=== PATIENT | male | born 1950 | race Caucasian/White ===

== ENCOUNTER 2017-07-31 17:46 | Inpatient (IN) | payer OTHER, MEDICARE, SELFPAY ==
[2017-07-31 17:47] VITALS: BP 112/80; PULSE 84; RESP 17; TEMP 37.7; O2SAT 94; BMI 31.8
--- NOTE | 2017-07-31 18:38 | CT_ITS ---
STUDY: CT ABDOMEN AND PELVIS WITHOUT CONTRAST REASON FOR EXAM: Male, 66 years old. Right flank pain RADIATION DOSAGE (If Supplied By Facility): CTDIvol = ( 20.05 ) mGy, DLP = ( 1051.81 ) mGycm TECHNIQUE: Transaxial images were obtained from the dome of the diaphragm to the symphysis pubis without oral contrast, and without intravenous contrast. Sagittal and coronal images were reconstructed. Individualized dose optimization techniques were used for this CT. COMPARISON: None. FINDINGS: There is minimal atelectasis in the right lung base. There is no pleural effusion. The heart is normal in size. Coronary artery calcifications are present. There is a prosthesis in the mitral valve. Sternotomy wires are present. Normal liver. There are small calcifications in the lumen of the gallbladder. Normal spleen. Normal pancreas. Normal bilateral adrenal glands. There is a hyperechoic area in the lower pole and adjacent to the lower pole of the right kidney measuring 3 cm in length. There is stranding around the right kidney. There is mild dilatation of the collecting system in the right kidney. There are vascular calcifications in the midpole. A ureteral stent is present with the upper aspect in the right renal pelvis and the lower aspect in the bladder. No calcifications are seen adjacent to the stent. There is a punctate nonobstructing stone in the midpole of the left kidney. There are vascular calcifications in the mid pole of the left kidney. There is no dilatation of the collecting system in the left kidney. Normal visualized stomach. Normal small intestine. There are diverticula in the distal colon without adjacent stranding. The appendix measures about 8 mm, however the tip measures about 1.3 cm. There are marked vascular calcifications. Normal inferior vena cava. There is stranding around the right ureter. There is a small focus of air in the bladder, likely from recent catheterization. Normal visualized prostate gland. There is a small umbilical hernia containing fat. There are moderate degenerative changes in the visualized spine. CT/Abdomen/Pelvis without Cont IMPRESSION: There is a ureteral stent on the right side with the upper aspect in the right renal pelvis and the lower aspect in the bladder. There is no evidence of a stone adjacent to the stent. There is mild hydronephrosis in the right kidney. No stones are seen in the collecting system of the right kidney. There is stranding around the right kidney and right ureter, and a high density focus in the lower pole of the right kidney suggests either recent lithotripsy or percutaneous catheter placement. The tip of the appendix is prominent, however this is a nonspecific appearance. This may be secondary to irritation by the stranding around the right kidney extending into the right retroperitoneal space. Tip appendicitis cannot be completely excluded. There is diverticulosis of the distal colon. There is no ascites or free air. There are gallstones in the lumen of the gallbladder without evidence of surrounding inflammation. Electronically Signed: Tequila Liu MD at 20:46 EST Tel Direct: [phone], Service support ,
[2017-07-31] MEDS: 0.9% Normal Saline 1,000 ML 999 ML IV (19:07)
[2017-07-31] MEDS: Ondansetron 4 MG/2 ML Vial IV (19:07)
[2017-07-31 19:08] LABS: Absolute Lymphocyte Count 0.74 X10^3/ul (0.83-4.51); Absolute Neutrophil Count 10.5 X10^3/uL (2.0-7.7); Basophil# 0.02 X10^3/uL; Basophil% 0.2 % (0-1); Eosinophil# 0.13 X10^3/uL; Hematocrit 41.1 % (40-54); Lymphocyte # 0.74 X10^3/ul (4.0); Lymphocyte % 5.8 % (19-41); Mean Corp Hgb Conc 34.1 g/gl (32-36); Mean Corpuscular Hgb 30.7 pg (27.0-32.0); Mean Corpuscular Volume 90.1 fL (80-94); Mean Platelet Vol. 9.3 fl (6.2-12.0); Monocyte# 1.26 X10^3/uL; Monocyte% 9.9 % (0-10); Neutrophil # 10.52 X10^3/uL (2.7-7.7); Neutrophil % 82.9 % (47-70); Platelet Count 253 K/mm3 (150-450); RBC Distribution Width SD 42.5 fl (35.1-43.9); Red Blood Count 4.56 M/mm3 (4.6-6.2); White Blood Count 12.7 K/mm3 (4.4-11.0)
[2017-07-31 19:09] LABS: POSITIVE COUNT NO; POSITIVE DIFFERENTIAL NO; POSITIVE MORPHOLOGY NO
[2017-07-31 19:16] LABS: International Normalized Ratio 1.1; Prothrombin Time (Protime)PT. 13.7 SECONDS (11.7-14.9)
[2017-07-31 19:22] LABS: Anion Gap 9 (5-15); BUN 18 mg/dL (7-18); BUN/Creat Ratio 10.2 RATIO (10-20); Calcium,Total 8.8 mg/dL (8.5-10.1); Chloride 102 mmol/L (98-107); Creatinine, Serum 1.77 mg/dL (0.70-1.30); EST Glomerular Filtration Rate 41 mL/min (>60); Est Glom Filt Rate - Afr Amer 50 mL/min (>60); Estimated Creatinine Clearance 42.39 ml/min; Glucose 140 mg/dL (70-110); Potassium 4.5 mmol/L (3.5-5.1); Sodium Level 133 mmol/L (136-145)
[2017-07-31 19:40] LABS: Bacteria 0 SEEN /hpf (None Seen); Mucous, Urine 0 SEEN /hpf (<or=2+); Squamous Epithelial Cells - UA 0 SEEN /hpf (0-5)
[2017-07-31 19:50] LABS: Color, Urine Amber (Yellow); Glucose, Dipstick Normal (Normal); Ketone-Dipstick 15 mg/dl (Negative); Leukocyte Esterase-Dipstick 500 /ul (Negative); Nitrite-Dipstick Negative (Negative); Occult Blood-Urine 250 /ul (Negative); Protein-Dipstick 30 mg/dl (Negative); Urine Bilirubin Dipstick Negative (Negative); Urine Clarity Cloudy (Clear); Urine Urobilinogen Normal (Normal)
--- NOTE | 2017-07-31 20:01 | ED.RN ---
STILL NEEDS VERIFIED NO POA OR LW
[2017-07-31 20:05] LABS: Red Blood Cells-Urine > 100 SEEN /hpf (0-5); White Blood Cells 25-50 SEEN /hpf (0-5)
[2017-07-31 20:49] VITALS: BP 159/67; PULSE 64; RESP 18; O2SAT 97
--- NOTE | 2017-07-31 21:17 | ED.RN ---
PAGED DR. LAND UROLIGIST
--- NOTE | 2017-07-31 22:09 | ED.RN ---
PAGED DR. VELASQUEZ
[2017-07-31 22:12] VITALS: BP 133/64; PULSE 70; RESP 16; O2SAT 93
--- NOTE | 2017-07-31 22:18 | ED.VISSUMM ---
- ER Visit Summary Date of Service: 07/31/17 Chief Complaint: Right flank pain History of Present Illness: The patient is a 66 M who complains of right flank and right lower abdominal pain. He recently had a percutaneous nephrolithotomy. He also had a ureteral stent placement. His pain was well controlled until last night. His pain began increased. Currently his pain is 8 out of 10. He did have one episode of vomiting. He has hematuria but states this is improving. No dysuria frequency or urgency. No fevers. Physical Examination: Afebrile temperature 100.0. Moist mucous membranes Heart regular rate and rhythm Lungs are clear Abdomen soft nondistended with focal right lower quadrant tenderness. Pain is at McBurney's point. He does not have guarding or rebound. Mild right CVA tenderness wound is clean dry and intact Test Results: Laboratory studies notable for white blood cell count 12.7. Creatinine is 1.77. Urine is notable for leukocyte esterase of 500, blood 250, 25-50 WBCs, greater than [address] of the abdomen shows right ureteral stent in place with mild hydronephrosis. There is some perinephric and periureteral stranding. There is a high density focus in the lower pole of the right kidney. The tip of the appendix is prominent and tip appendicitis cannot be ruled out. Incidental gallstones without findings suggestive of cholecystitis. Emergency Department Course and Treatment: Patient was treated here with IV fluids morphine and Zofran. He was treated with IV cefepime. He has a history of rash to penicillins. I spoke to the covering urologist, Dr. Diaz. I spoke to the resident before who reviewed the patient's prior labs and noted that his prior creatinine was 1.1 so creatinine 1.77 is an acute kidney injury. Radiology had noted that this could be reactive rate related to the surrounding inflammatory changes. Urology felt that this was unlikely as everything was done from above at the level of the kidney and given that he is focally tender in the right lower quadrant this is more likely an unrelated acute appendicitis. I spoke to Dr. Quinones who agreed and reviewed images. Patient will be admitted under the surgical service with plan for appendectomy tomorrow. Treatment Plan: [] Disposition: Admit Impression: Appendicitis Acute kidney injury This note was generated with [employer] dictation software. It may contain incorrect words, spelling, and punctuation that were not noted in review of the chart prior to signing ED Disposition - Plan for ED Patient: Chief Complaint: Flank Pain Referrals: Jordan Deluca MD [Primary Care Provider] -
--- NOTE | 2017-07-31 22:21 | ED.RN ---
GOING TO RM 314
[2017-07-31 22:23] VITALS: BP 137/62; PULSE 74; RESP 14; TEMP 37.4; O2SAT 93
--- NOTE | 2017-07-31 22:23 | ED.RN ---
MED SURG 314 RLQ ABDOMINAL PAIN, ABORMAL APPNDIX ON CT SCAN, ELEVAYED WBC VELASQUEZ
[2017-07-31 22:55] VITALS: BP 138/60; PULSE 73; RESP 12; TEMP 37.1; O2SAT 98
[2017-07-31 23:09] VITALS: BMI 31.8
[2017-07-31 23:10] VITALS: BMI 31.8
[2017-07-31] MEDS: Lactated Ringers 1,000 ML 125 ML IV (23:34)
[2017-08-01] VITALS (8 sets, daily range): BP systolic 107–163; BP diastolic 65–93; PULSE 63–73; RESP 14–18; TEMP 36.7–37.3; O2SAT 92–96; BMI 31.8
--- NOTE | 2017-08-01 05:55 | EKG12_ITS ---
Test Reason : PRE OP Blood Pressure : / mmHG Vent. Rate : 070 BPM Atrial Rate : 070 BPM P-R Int : 232 ms QRS Dur : 094 ms QT Int : 392 ms P-R-T Axes : 078 001 -07 degrees QTc Int : 423 ms Sinus rhythm with 1st degree A-V block Inferior infarct , age undetermined Abnormal ECG No previous ECGs available Confirmed by SANJUANA REYES ([id number]), international editorial producer MARCK CLAIRE ([id number]) on 08/12/2017 1:35:45 PM Referred By: RON Confirmed By:SANJUANA REYES
[2017-08-01 06:59] LABS: Absolute Lymphocyte Count 1.36 X10^3/ul (0.83-4.51); Absolute Neutrophil Count 6.6 X10^3/uL (2.0-7.7); Basophil# 0.01 X10^3/uL; Basophil% 0.1 % (0-1); Eosinophil# 0.34 X10^3/uL; Eosinophils% 3.6 % (0-5); Hematocrit 38.7 % (40-54); Hemoglobin 12.7 g/dl (13.0-16.5); Lymphocyte # 1.36 X10^3/ul (4.0); Lymphocyte % 14.3 % (19-41); Mean Corp Hgb Conc 32.8 g/gl (32-36); Mean Corpuscular Volume 91.5 fL (80-94); Mean Platelet Vol. 9.6 fl (6.2-12.0); Monocyte# 1.21 X10^3/uL; Monocyte% 12.7 % (0-10); Neutrophil % 69.1 % (47-70); Platelet Count 247 K/mm3 (150-450); RBC Distribution Width CV 13.1 % (11.6-14.6); RBC Distribution Width SD 43.5 fl (35.1-43.9); Red Blood Count 4.23 M/mm3 (4.6-6.2); White Blood Count 9.5 K/mm3 (4.4-11.0)
[2017-08-01 07:15] LABS: POSITIVE COUNT NO; POSITIVE DIFFERENTIAL NO; POSITIVE MORPHOLOGY NO
[2017-08-01 07:22] LABS: Anion Gap 9 (5-15); BUN 18 mg/dL (7-18); BUN/Creat Ratio 10.8 RATIO (10-20); Calcium,Total 8.4 mg/dL (8.5-10.1); Chloride 101 mmol/L (98-107); Creatinine, Serum 1.66 mg/dL (0.70-1.30); EST Glomerular Filtration Rate 44 mL/min (>60); Est Glom Filt Rate - Afr Amer 54 mL/min (>60); Glucose 122 mg/dL (70-110); Potassium 4.4 mmol/L (3.5-5.1); Sodium Level 135 mmol/L (136-145)
[2017-08-01] MEDS: Lactated Ringers 1,000 ML 125 ML IV (07:29)
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
--- NOTE | 2017-08-01 10:53 | NURSING ---
Called Report to [facility] in OR at [phone]. Pt left floor shortly after for surgery.
--- NOTE | 2017-08-01 11:00 | APP_PTH ---
PATIENT: LILIANA TAVAREZ LOC: [facility] U#:[id number] AGE/SX: 66/M ROOM: VT314 RE07/31/[address]: Dr. Angelica Quinones MD : 1950 BED: 1 DIS: 08/01/2017 SPEC #: [id number] RECD: 08/02/17 10:05 STATUS: MAYELA REMartina #: [id number] MARCIANO: 08/01/17 11:[address]: Angelica Quinones DEPT: SURGICAL PATHOLOGY RECD BY: Ki Chowdary ENTERED: 08/02/17 10:05 SP TYPE: APPENDIX OTHR DR: Dr. Jordan Deluca MD Tissues: Appendix, NOS Procedures: Surgery Specimen Level III HEADER OPERATION: Laparoscopic appendectomy PRE-OP DIAGNOSIS: Abnormal CT scan TISSUE SUBMITTED: Appendix MICROSCOPIC DIAGNOSIS Appendix, appendectomy: Appendix with serosal congestion and hemorrhage. Negative for acute inflammation. See comment. TANO:jason 08/03/17 COMMENT The entire appendix is examined and does not show any evidence of acute inflammation in the lumen or appendicular wall. Correlation with clinical, radiologic findings and appropriate follow up are necessay. MICROSCOPIC DESCRIPTION Slides are reviewed. GROSS DESCRIPTION Received is one container labeled with the patient's name and designated appendix. The specimen consists of an appendix measuring 7 cm in length and up to 1 cm in average diameter. The attached periappendiceal adipose tissue measures 1.5 cm in width. The serosa is congested. No obvious perforation is identified. The lumen does not contain any fecalith. Funnel Coater sections are submitted in one cassette. / SJ:jason 08/02/17 The rest of the specimen is submitted in three more cassettes, 2-4. / SJ:jason 08/03/17 TC:5 CPT: 78623
[2017-08-01] MEDS: Bupivacaine 0.25% 30 ML Vial (11:15)
--- NOTE | 2017-08-01 11:24 | PCM.IMDPSTOP ---
Immediate Post-Op Note Date of Procedure: 08/01/17 Primary Surgeon/Physician: Angelica Quinones chief growth officer: NOT,DEFINED Pre-Operative Diagnosis: abnormal appendix on CT scan, elevated WBC Post-Operative Diagnosis: same - path pending Surgery/Procedure Performed:: laparoscopic appendectomy Description of Surgical Findings:: distal aspect of appendix is enlarged with erythema. large right retroperitoneal hematoma probably from ureteral/kidney surgery Estimated Blood Loss: < 20 Specimen's removed: appendix Type of Anesthesia:: General ASA Class: ASA3 Plus Emergency - Admit VTE Documentation VTE Present on Admission: Yes VTE Mechan Device Prophylaxis: SCD's
--- NOTE | 2017-08-01 11:25 | PCM.OPRPT ---
Report of Operation Date of Procedure: 08/01/17 Pre-Operative Diagnosis: abnormal appendix on CT scan, elevated WBC Post-Operative Diagnosis: same - path pending Surgery/Procedure Performed:: laparoscopic appendectomy Description of Surgical Findings:: distal aspect of appendix is enlarged with erythema. large right retroperitoneal hematoma probably from ureteral/kidney surgery consulting utility forester: NOT,DEFINED Type of Anesthesia:: General Anesthesiologist: Madeleine Collins Specimen's removed: appendix Drains: none Estimated Blood Loss (mL): < 20 Fluids Replaced: 1000 ml RL Description of Procedure: After informed consent was obtained, the patient was brought into the operating room and placed in the supine position on the operating table. Appropriate time out protocol was followed. The patient was then placed under general anesthesia. The patients abdomen was then prepped with a sterile surgical skin preparation and sterile surgical drapes were placed. The infraumbilical skin fold was grasped with penetrating clamps and the skin and subcutaneous tissues were infiltrated with local anesthetic. A transverse skin incision was then made. A Veress needle was then inserted into the intraabdominal cavity and checked to be in the proper position with a normal saline drop test. A CO2 pneumoperitoneum was then created. Once this was achieved, the Veress needle was removed and a 5 mm trocar was placed in its stead. A 5 mm laparoscope was then inserted into the trocar. Careful examination of the intraabdominal contents was then done. There was no evidence of injury to any internal organs from placement of the Veress needle or the trocar. Under direct visualization, a 12mm suprapubic trocar and a 5mm left lower quadrant trocar was then placed into the intraabdominal cavity. The skin and subcutaneous tissues at these sites were first infiltrated with local anesthetic. Attention was then directed to the right lower quadrant. The appendix was visualized. The distal aspect was enlarged and erythematous. The mesentery of the appendix was taken down by cauterizing the tissue from the free edge to the base of the appendix with the Kleppinger device. Once the base of the appendix was freed of surrounding tissues, then the Harmonic scalpel. Once the base of the appendix was cleared of surrounding tissue, then a linear gastrointestinal stapling device was brought into the abdominal cavity via the 12mm port and placed across the base of the appendix. The stapling device was fired, thus stapling across the base of the appendix and transecting it simultaneously. The appendix was then placed in an Endobag and this was brought out through the suprapubic trocar. The appendix was then forwarded to Pathology for analysis. The appendiceal stump was carefully examined. There was no evidence of any active bleeding or fecal leakage. The surrounding tissues were also examined and there was no evidence of any active bleeding or fecal/bile leakage. There was a retroperitoneal hematoma present from previous ureteral manipulation. The patient was also noted to have a left inguinal hernia. The intraabdominal cavity was examined and there was no evidence of further inflammation or tissue abnormality. There was no evidence of any peritoneal fluid. The CO2 pneumoperitoneum was released and all trocars were removed intact. The suprapubic fascia was reapproximated with a figure-of-8 vicryl suture. All skin incisions were reapproximated with monocryl suture. Cavilon and steristrips were applied to reinforce skin closure and proper sterile dressings were placed. The patient was then extubated and brought to the Recovery Room in stable condition. - Complications none noted - Admit VTE Documentation VTE Present on Admission: Yes VTE Mechan Device Prophylaxis: SCD's
[2017-08-01 11:41] LABS: Bedside Glucose 117 mg/dL (70-110)
--- NOTE | 2017-08-01 13:50 | PCM.DC.APPY ---
Discharge Diet: No Restrictions Discharge Activity: Return to Normal Activity, May not drive while taking narcotic pain medications. Return to work on:: 08/09/17 - 1-2 weeks as needed Lifting Restrictions: no lifting greater than 20 pounds for two weeks Call your doctor if your incision/area has: Continuous Slow Oozing, Foul Smelling Discharge Call your doctor if you observe: Fever of 101 or Higher Additional Dressing/Incision Instructions:: Leave dressings in place. May get wet in shower. Do not soak - no tub baths/swimming Medications to take at Discharge Acetaminophen [Pain Relief] 1,000 mg PO Q6H PRN PRN 07/31/17 Aspirin E.C. [Ecotrin] 81 mg PO DAILY@0800 07/31/17 Bimatoprost [Lumigan Opthalmic] 1 drop EACH EYE QHS 07/31/17 Docusate Sodium [Colace] 100 mg PO BID 07/31/17 Enoxaparin [Lovenox] 100 mg SC Q12@0600,1800 07/31/17 Fluticasone 0.05% [Flonase Nasal [place]] 2 spray NASAL DAILY 07/31/17 Lisinopril [Zestril] 20 mg PO DAILY 07/31/17 Loratadine 10 mg PO QHS 07/31/17 Metformin HCl [Metformin HCl ER] 500 mg PO DAILY 07/31/17 Metoprolol Tartrate [Lopressor (Beta Jenna)] 12.5 mg PO BID 07/31/17 Oxybutynin [Ditropan] 5 mg PO TID PRN PRN 07/31/17 Oxycodone [Oxyir] 5 mg PO Q6H PRN PRN 07/31/17 Rosuvastatin Calcium [Crestor] 20 mg PO QHS 07/31/17 Sulfamethoxazole/Trimethoprim [Bactrim Ds Tablet] 1 each PO BID 07/31/17 Tamsulosin HCl [Flomax] 0.4 mg PO QHS 07/31/17 Warfarin [Coumadin ([facility])] 1.5 mg PO MOTUTHSA 07/31/17 Warfarin [Coumadin ([facility])] 3 mg PO SUWEFR 07/31/17 Oxycodone [Oxyir] 5 mg PO Q6H PRN PRN #20 tab 08/01/17 Allergies/Adverse Reactions: Allergies amoxicillin Adverse Reaction (Verified 07/31/17 17:47) Hives atorvastatin [From Lipitor] Adverse Reaction (Verified 07/31/17 17:47) Other The following prescriptions were given: Oxycodone [Oxyir] 5 mg PO Q6H PRN PRN #20 tab PRN Reason: Mod-Severe Pain (4-04/27) Please Follow Up With: Angelica Quinones MD - call When: to be seen in 1-2 weeks, please call for date and time, thank you
== END 2017-08-01 17:19 | disposition home or self-care (01) | DRG 341 ==
LOC: ED 19:15 → MS3 22:29
PROVIDERS: Anesthesiology; Admitting Provider Surgery; Emergency Provider Emergency Medicine; Family Provider Family Medicine; PCP Family Medicine; Visit Provider Surgery
PROC: 0DTJ4ZZ Resection of Appendix, Percutaneous Endoscopic Approach (ICD-10-PCS; CPT 44970; principal; 2017-08-01 11:00)
DX: R93.5 Abnormal findings on diagnostic imaging of other abdominal regions, including retroperitoneum (principal); K66.1 Hemoperitoneum; N17.9 Acute kidney failure, unspecified; N13.30 Unspecified hydronephrosis; E11.9 Type 2 diabetes mellitus without complications; E78.00 Pure hypercholesterolemia, unspecified; D72.829 Elevated white blood cell count, unspecified; I25.10 Atherosclerotic heart disease of native coronary artery without angina pectoris; I10 Essential (primary) hypertension; H40.9 Unspecified glaucoma; Z79.01 Long term (current) use of anticoagulants; Z79.82 Long term (current) use of aspirin; Z79.84 Long term (current) use of oral hypoglycemic drugs; I25.2 Old myocardial infarction; Z87.442 Personal history of urinary calculi; Z95.1 Presence of aortocoronary bypass graft; Z95.2 Presence of prosthetic heart valve; Z87.891 Personal history of nicotine dependence
CPT/HCPCS: 74176; 80048; 81001; 82962; 83036; 85025; 85610; 88304; 93005; 97802; 99285; J7030; J7050; J7120; A4216; J2405

== ENCOUNTER → 2017-09-18 10:56 | Outpatient (CLI) | payer OTHER, MEDICARE, SELFPAY ==
[2017-09-18 11:18] LABS: International Normalized Ratio 2.4; Prothrombin Time (Protime)PT. 26.1 SECONDS (11.7-14.9)
== END ==
PROVIDERS: Family Provider Family Medicine; PCP Family Medicine; Visit Provider Family Medicine
DX: I48.0 Paroxysmal atrial fibrillation (principal); I34.0 Nonrheumatic mitral (valve) insufficiency
CPT/HCPCS: 36415; 85610

== ENCOUNTER → 2017-10-14 08:29 | Outpatient (CLI) | payer OTHER, MEDICARE, SELFPAY ==
[2017-10-14 08:47] LABS: International Normalized Ratio 2.2; Prothrombin Time (Protime)PT. 24.4 SECONDS (11.7-14.9)
== END ==
PROVIDERS: Family Provider Family Medicine; PCP Family Medicine; Visit Provider Family Medicine
DX: I34.0 Nonrheumatic mitral (valve) insufficiency (principal); I48.0 Paroxysmal atrial fibrillation
CPT/HCPCS: 85610

== ENCOUNTER 2019-02-26 15:36 | Emergency (ER) | payer OTHER, SELFPAY ==
[2019-02-26 15:36] VITALS: BP 110/70; PULSE 67; RESP 18; TEMP 36.2; O2SAT 98; BMI 33.7
--- NOTE | 2019-02-26 15:53 | ED.DCSUM_ITS ---
History of Present Illness <Robin Mcdaniel - Last Filed: 02/26/19 15:53> Informant: Patient, Significant Other Onset: Today Context: Sudden Onset Timing: Continuous Quality: aching Location: left knee Current Severity: Mild Maximum Severity: Mild Worsened by: movement, palpation Relieved by: rest Associated Symptoms: denies Narrative: 68-year-old male presents with a laceration to his left knee that occurred just prior to arrival when he dropped his chains onto his leg. The chainsaw was not running. He has a 3 cm laceration laterally just distal to his knee. His last tetanus immunization was 4 years ago. He is still ambulatory. He has no numbness or tingling or any other injuries. He is not on blood thinners. Prior similar symptoms: No Recent Illness/Hospitalization: No <Miguel Angel Weston - Last Filed: 02/26/19 16:20> Chief Complaint: Laceration Past Medical History Smoking Status: Former smoker <Robin Mcdaniel - Last Filed: 02/26/19 15:53> Prior records reviewed: Yes Past Medical History: - - Hypertension and hyperlipidemia Surgical History: noncontributory Lives: With Family <Miguel Angel Weston - Last Filed: 02/26/19 16:20> - Allergies and Home Meds Allergies/Adverse Reactions: Allergies amoxicillin Adverse Reaction (Verified 07/31/17 17:47) Hives atorvastatin [From Lipitor] Adverse Reaction (Verified 07/31/17 17:47) Other Primary Care Physician: Jordan Deluca MD [Primary Care Provider] - 10-14 Days suture removal Review of Systems All systems negative except as indicated Skin: Reports: Wounds <TristaMiguel Angel - Last Filed: 02/26/19 16:20> Physical Exam Vital Signs/Narrative: Vital Signs Temp Pulse Resp BP Pulse Ox 02/26/19 15:36 97.1 F L 67 18 110/70 98 <Robin Mcdaniel - Last Filed: 02/26/19 15:53> Vital Signs/Narrative: Vital Signs Temp Pulse Resp BP Pulse Ox 02/26/19 15:36 97.1 F L 67 18 110/70 98 Inital Vital Signs reviewed: Yes General: Well nourished, Well developed Head: Normocephalic, Atraumatic Eyes: Perrl, EOMI ENT: Moist mucous membranes Neck: Supple, Nontender Cardiovascular: Regular rate, Regular rhythm Respiratory: No distress, CTA bilaterally, Chest nontender Back: Normal Inspection Extremities: - - 3 cm laceration to the proximal leg distal to the knee laterally on the left. Neurovascularly intact distally. Normal range of motion actively at the left knee and ankle. No signs of compartment syndrome or infection. Skin: Trauma Neurological: Alert, Oriented x3 <Miguel Angel Weston - Last Filed: 02/26/19 16:20> Diagnostic/Tx/Re-eval - Medical Decision Making Left lower leg laceration. I will evaluate this patient with our physician veterinary technician assistant. Older male cut his left lower leg with a chainsaw that was not running. Tetanus within the last 2 years. Denies any other injuries. Neuro exam: No acute distress. Vital signs are stable and afebrile. He has a 3-1/2 to 4 cm laceration left lower leg. It is below the knee. Does not involve the joint. There is oozing of blood. No pulsatile bleeding. No significant hematoma. Involves the skin and subcu tissue and will need to be repaired. The wound does not look dirty. Distally there is no bony tenderness. The left foot is neurovascular intact with a palpable DP pulse. Dorsi plantarflexion intact. And sensation. Otherwise exam unremarkable. Procedure note: Area cleaned with Shur-Clens. Copiously irrigated and explored. By her physician veterinary technician assistant. Impression: 1. Left lower leg laceration with ER repair <Robin Mcdaniel - Last Filed: 02/26/19 15:53> Procedures - Lacerations No standard instances Length: 3 cm Depth: Skin Shape: Linear Prep: Sterile Conditions, Chlorhexadine Laceration repair: Irrigated, Lidocaine with epi, Wound explored Irrigated (ml): 120 - pressure wash syringe Number of Sutures/Sharad: 5 Suture Information: Simple, 4-0 <Miguel Angel Weston - Last Filed: 02/26/19 16:20> ED Disposition <Robin Mcdaniel - Last Filed: 02/26/19 15:53> <Miguel Angel Weston - Last Filed: 02/26/19 16:20> - Plan for ED Patient: Disposition: Home or Assisted Living Diagnosis: Laceration of left leg Instructions: LACERATION, All Referrals: Jordan Deluca MD [Primary Care Provider] - 10-14 Days suture removal Additional Instructions: Keep area clean. Daily with soap and water peroxide and water. Apply antibiotic ointment. Suture removal in no less than 10 no more than 14 days. Watch for any signs of infection such as redness, pus or fever seen return.
--- NOTE | 2019-02-26 15:57 | ED.DEP ---
ED Disposition - Plan for ED Patient: Disposition: Home or Assisted Living Instructions: LACERATION, All Referrals: Jordan Deluca MD [Primary Care Provider] - 10-14 Days suture removal Additional Instructions: Keep area clean. Daily with soap and water peroxide and water. Apply antibiotic ointment. Suture removal in no less than 10 no more than 14 days. Watch for any signs of infection such as redness, pus or fever seen return.
[2019-02-26 16:32] VITALS: RESP 16
== END 2019-02-26 16:33 | disposition home or self-care (01) ==
LOC: ED 15:58
PROVIDERS: Emergency Provider Physician Assistant Medical; Family Provider Family Medicine; PCP Family Medicine
DX: S81.012A Laceration without foreign body, left knee, initial encounter (principal); W29.3XXA Contact with powered garden and outdoor hand tools and machinery, initial encounter; Y93.9 Activity, unspecified; Y92.9 Unspecified place or not applicable; Y99.9 Unspecified external cause status; Z23 Encounter for immunization; I10 Essential (primary) hypertension; E78.5 Hyperlipidemia, unspecified; Z88.0 Allergy status to penicillin; Z79.01 Long term (current) use of anticoagulants; Z79.84 Long term (current) use of oral hypoglycemic drugs; Z79.82 Long term (current) use of aspirin; Z79.899 Other long term (current) drug therapy; Z87.891 Personal history of nicotine dependence
CPT/HCPCS: 12002; 90471; 99285

== ENCOUNTER 2019-02-28 19:56 | Emergency (ER) | payer OTHER, SELFPAY ==
[2019-02-28 19:58] VITALS: BP 111/70; PULSE 73; RESP 16; TEMP 36.7; O2SAT 95; BMI 33.3
--- NOTE | 2019-02-28 20:06 | ED.VIS.GEN ---
History of Present Illness Chief Complaint: Wound Check Informant: Patient, Significant Other Context: Onset with activity Timing: Continuous Quality: Pain from laceration site Location: Proximal anterior left leg Current Severity: Mild Maximum Severity: Mild Worsened by: Patient on anticoagulant and activity Relieved by: Nothing Associated Symptoms: No bruising or other bleeding issues Narrative: Patient is a 68-year-old male who was seen on the for laceration proximal anterior left leg. He dropped a chainsaw. The chainsaw cut his leg. The chainsaw was not running. He is taking Coumadin because he has a prosthetic valve. He denies bruising. He denies black or maroon stool. Denies blood in his urine. He has no other complaints. Prior similar symptoms: Yes Recent Illness/Hospitalization: Yes - Past Medical History (1) H/O prosthetic heart valve Status: Acute Past Medical History - Allergies and Home Meds Allergies/Adverse Reactions: Allergies amoxicillin Adverse Reaction (Verified 02/28/19 20:01) Hives atorvastatin [From Lipitor] Adverse Reaction (Verified 02/28/19 20:01) Other Primary Care Physician: Jordan Deluca MD [Primary Care Provider] - Prior records reviewed: Yes Surgical History: noncontributory Lives: Spouse/ Significant Other Smoking Status: Former smoker Alcohol: None Review of Systems General: Denies: Fever, Malaise Musculoskeletal: Denies: Myalgias, Arthralgias, Neck pain, Back pain, Swelling, Extremity Pain Skin: Reports: Wounds. Denies: Rash, Abscess, Abrasions Hematologic: Reports: Easy bruising, Easy bleeding. Denies: Lymphadenopathy Allergy: Denies: Uticaria, Swelling of the mouth, Swelling of the tongue Physical Exam Vital Signs/Narrative: Vital Signs Temp Pulse Resp BP Pulse Ox 02/28/19 19:58 98.0 F 73 16 111/70 95 Inital Vital Signs reviewed: Yes General: Well nourished, Well developed, No Acute Distress Head: Normocephalic, Atraumatic Eyes: Perrl, EOMI. Negative for: Pale conjunctiva, Scleral icterus Extremities: No edema, Tenderness. Negative for: Edema, Calf Tenderness Skin: Normal color, No rash, Trauma - Bleeding from suture site Psychological: Normal affect, Normal Mood Diagnostic/Tx/Re-eval Laboratory Results 02/28/19 20:10 PT 34.1 H INR 3.3 - Medical Decision Making Since patient is on Coumadin will obtain PT/INR. Suspect patient bleeding started because of activity at work going up and down steps and ladders etc. He denies reinjury. ED Disposition - Plan for ED Patient: Disposition: Home or Assisted Living Diagnosis: Anticoagulant adverse reaction Instructions: Coumadin Coagulopathy Referrals: Jordan Deluca MD [Primary Care Provider] - As Needed Additional Instructions: Take only 1.5 mg of Coumadin on and Wednesday.
[2019-02-28 20:28] LABS: International Normalized Ratio 3.3; Prothrombin Time (Protime)PT. 34.1 SECONDS (11.7-14.9)
== END 2019-02-28 21:01 | disposition home or self-care (01) ==
PROVIDERS: Emergency Provider Emergency Medicine; Family Provider Family Medicine; PCP Family Medicine
DX: D68.32 Hemorrhagic disorder due to extrinsic circulating anticoagulants (principal); T45.515A Adverse effect of anticoagulants, initial encounter; Y92.9 Unspecified place or not applicable; S81.812D Laceration without foreign body, left lower leg, subsequent encounter; W29.3XXD Contact with powered garden and outdoor hand tools and machinery, subsequent encounter; Z79.01 Long term (current) use of anticoagulants; Z79.84 Long term (current) use of oral hypoglycemic drugs; Z79.82 Long term (current) use of aspirin; Z79.899 Other long term (current) drug therapy; Z88.0 Allergy status to penicillin; Z87.891 Personal history of nicotine dependence; Z95.2 Presence of prosthetic heart valve
CPT/HCPCS: 85610; 99282

== ENCOUNTER → 2020-10-05 10:56 | Outpatient (CLI) | payer OTHER, SELFPAY ==
[2020-10-05 11:30] LABS: International Normalized Ratio 2.3
== END ==
PROVIDERS: PCP Family Medicine; Referring Provider Family Medicine; Visit Provider Family Medicine
DX: I48.0 Paroxysmal atrial fibrillation (principal); Z79.01 Long term (current) use of anticoagulants
CPT/HCPCS: 36415; 85610

== ENCOUNTER 2023-02-22 16:25 | Emergency (ER) | payer OTHER, SELFPAY ==
[2023-02-22 16:26] VITALS: BP 139/95; PULSE 79; RESP 16; TEMP 37; O2SAT 98; BMI 32.8
--- NOTE | 2023-02-22 16:36 | EDS_ITS ---
HPI HPI - GI History of Present Illness Chief Complaint: Diarrhea Informant: patient and spouse/S.O. Abdominal Pain/Flank Pain Onset: - (no abd pain) Nausea/Vomiting/Emesis GI Symptom: Positive for Nausea and Vomiting Onset: Days (3; no vtg today) Quality: Positive for Nonbilious; Negative for Blood streaks, Coffee ground or Hematemesis Diarrhea/Melena/Hematochezia GI Symptom: Positive for Diarrhea; Negative for Melena or Hematochezia Onset: Days (3) Stool Quality: Positive for Watery; Negative for Black or BRB per rectum Severity: Severe Associated Symptoms Associated Symptoms: Negative for Dysuria, Frequency, Hematuria or Urgency Narrative Narrative: Patient presenting with fevers up to 100.1 and watery nonbloody diarrhea. No known sick contacts. No travel out of the area but this started after he had gone out to eat with his and eating eggs that he thought were undercooked. He denies any hospitalization or surgery recently, no contact with anyone that he knows of who has been ill, and no history of C. difficile. No recent antibiotics for any reason. The diarrhea is not bloody and he denies having any abdominal pain. He had some vomiting, still nauseated, poor appetite as a result of all of this. Drinking water or eating anything seems to go right through him and stimulates diarrhea. PFSH PFS Home Medications acetaminophen 500 mg tablet (Pain Relief Extra Strength (acetaminophen)) 1,000 mg PO Q6H PRN PRN Pain 07/31/17 [History Last Taken 07/31/17] aspirin 81 mg tablet,delayed release 81 mg PO DAILY@0800 heart health 07/31/17 [History Last Taken 07/30/17] bimatoprost 0.03 % drops with applicator, eyelash base (Latisse) 1 drp QHS glaucoma 07/31/17 [History Last Taken 07/30/17] docusate sodium 100 mg capsule (DOK) 100 mg PO BID constipation 07/31/17 [History Last Taken 07/31/17] enoxaparin 100 mg/mL subcutaneous syringe 100 mg subcut Q12@0600,1800 blood thinner 07/31/17 [History Last Taken 07/30/17] fluticasone propionate 50 mcg/actuation nasal spray,suspension 2 spray DAILY allergies 07/31/17 [History Last Taken Unknown] lisinopril 20 mg tablet (Zestril) 20 mg PO DAILY blood pressure 07/31/17 [History Last Taken 07/30/17] loratadine 10 mg tablet 10 mg PO QHS allergies 07/31/17 [History Last Taken 07/30/17] metformin 500 mg 24 hr tablet,extended release 500 mg PO DAILY diabetes 07/31/17 [History Last Taken 07/26/17] metoprolol tartrate 25 mg tablet 12.5 mg PO BID hypertension 07/31/17 [History Last Taken 07/30/17] oxybutynin chloride 5 mg tablet 5 mg PO TID PRN PRN Bladder Spasms 07/31/17 [History Last Taken 07/31/17] oxycodone 5 mg tablet 5 mg PO Q6H PRN PRN Pain 07/31/17 [History Last Taken 07/31/17] rosuvastatin 20 mg tablet (Crestor) 20 mg PO QHS cholesterol 07/31/17 [History Last Taken 07/30/17] sulfamethoxazole 800 mg-trimethoprim 160 mg tablet (Bactrim DS) 1 ea PO BID antibiotic 07/31/17 [History Last Taken 07/30/17] tamsulosin 0.4 mg capsule (Flomax) 0.4 mg PO QHS BPH 07/31/17 [History Last Taken 07/30/17] warfarin 1 mg tablet (Jantoven) 1.5 mg PO MOTUTHSA blood thinner 07/31/17 [History Last Taken Unknown] warfarin 3 mg tablet (Jantoven) 3 mg PO SUWEFR blood thinner 07/31/17 [History Last Taken Unknown] oxycodone 5 mg tablet 5 mg PO Q6H PRN PRN Mod-Severe Pain (4-10/10) #20 tabs 08/01/17 [Rx Last Taken Unknown] ondansetron 4 mg disintegrating tablet 8 mg (2 x 4 mg) PO Q8H PRN PRN Nausea #20 tabs 02/22/23 [Rx Last Taken Unknown] Allergy/AdvReac Type Severity Reaction Status Date / Time amoxicillin AdvReac Hives Verified 02/28/19 20:01 atorvastatin [From Lipitor] AdvReac Other Verified 02/28/19 20:01 Surgical History (Updated 02/22/23 @ 16:[address] Brice Lanza MD) H/O prosthetic heart valve Social History Smoking Status: Former smoker ROS ROS ED Constitutional Constitutional ED: Reports fever(s), malaise and weakness; Denies chills Eyes Eyes: Denies change in vision or diplopia ENT ENT ED: Denies rhinorrhea or sore throat Cardiovascular Cardiovascular: Denies chest pain or palpitations Respiratory/Chest Respiratory/Chest: Denies cough or dyspnea Gastrointestinal Gastrointestinal: Reports diarrhea, nausea and vomiting; Denies abdominal pain, hematemesis, hematochezia or melena Genitourinary Genitourinary ED: Denies dysuria or hematuria Musculoskeletal Musculoskeletal: Denies back pain or neck pain Integumentary Denies abscess or rash Neurologic Neurologic: Denies headache(s), paresthesias or weakness Psychiatric Psychiatric: Denies anxiety or suicidal thoughts EXAM Physical Exam Const Vital Signs: 02/22/23 16:26 02/22/23 17:45 Temperature 98.6 F Temperature Source Oral Pulse Rate 79 69 Respiratory Rate 16 16 Blood Pressure 139/95 H 115/73 Blood Pressure Mean 109 87 Pulse Ox 98 96 Oxygen Delivery Method Room Air Room Air Positive well nourished and well developed General Appearance ED: well developed and NAD HEENT Reports moist mucous membranes normocephalic and atraumatic Eyes PERRL and EOMs intact bilaterally Neck full ROM and supple Resp normal respiratory effort and clear to auscultation bilaterally Cardio regular rate, regular rhythm and no murmurs Rate: Negative for tachycardic GI non-tender and non-distended Auscultation: hyperactive bowel sounds Palpation: soft Back/Spine no CVA tenderness General Back: other FROM Extremity normal to inspection General Extremety ED: Negative for edema, pulses abnormal or tenderness General Extremity: Negative for edema or pulses abnormal Neuro oriented x3, CN's II-XII intact bilaterally and no sensory deficits noted Sensorium / Orientation: awake and alert Motor Exam: strength 5/5 throughout Skin no rashes or lesions noted and no wounds MDM MDM MDM Narrative Medical decision making narrative: Labs noted and fairly unremarkable. Patient is feeling better after Zofran and a liter of IV fluids. Suspect infectious diarrhea no need for advanced imaging at this time, question is viral versus C. difficile which he has no risk factors for versus bacterial such as Salmonella. Patient observed for a while did not have any stool/diarrhea here to test, he would rather go home and collect at home rather than stay here and wait. Therefore he was given prescriptions for the labs and for Zofran I would not treat him with antibiotics empirically right now unless his testing results indicate it is needed/indicated. They are comfortable with this plan we discussed the pros and cons of doing so. Lab Data Attestation: I reviewed the patient's lab results. Labs: Laboratory Results - last 24 hr 02/22/23 16:33 WBC 8.6 RBC 5.52 Hgb 17.0 H Hct 50.1 MCV 90.8 MCH 30.8 MCHC 33.9 RDW Std Deviation 44.8 H RDW Coeff of Maya 13.4 Plt Count 221 MPV 9.4 Immature Gran % (Auto) 0.500 Neut % (Auto) 80.4 H Lymph % (Auto) 9.4 L [place] % (Auto) 8.8 Eos % (Auto) 0.6 Baso % (Auto) 0.3 Absolute Neuts (auto) 6.9 Absolute Lymphs (auto) 0.81 L Nucleated RBC % 0 Sodium 134 L Potassium 3.9 Chloride 102 Carbon Dioxide 26.0 Anion Gap 6 BUN 17 Creatinine 1.34 H Estim Creat Clear Calc 49.83 Est GFR (MDRD) Af Amer 67 Est GFR (MDRD) Non-Af 56 L BUN/Creatinine Ratio 12.7 Glucose 115 H Calcium 8.7 Total Bilirubin 0.50 AST 33 ALT 39 Alkaline Phosphatase 41 L Total Protein 7.4 Albumin 3.8 Globulin 3.6 Albumin/Globulin Ratio 1.1 Discharge Plan Triage Chief Complaint: Diarrhea ED Provider: Brice Lanza Dx/Rx/DC Orders Clinical Impression: Gastroenteritis Instructions: ED Diarrhea, Unknown Cause Prescriptions: New ondansetron [ondansetron] 4 mg tablet,disintegrating 8 mg PO Q8H PRN PRN (Reason: Nausea) Qty: 20 0RF No Action lisinopril [Zestril] 20 MG tablet 20 mg PO DAILY sulfamethoxazole-trimethoprim [Bactrim DS] 1 EACH tablet 1 ea PO BID aspirin 81 MG tablet 81 mg PO DAILY@0800 acetaminophen [Pain Relief ES (acetaminophen)] 500 MG tablet 1,000 mg PO Q6H PRN PRN (Reason: Pain) tamsulosin [Flomax] 0.4 MG capsule 0.4 mg PO QHS docusate sodium [DOK] 100 MG capsule 100 mg PO BID oxybutynin chloride 5 MG tablet 5 mg PO TID PRN PRN (Reason: Bladder Spasms) fluticasone propionate 1 SPRAY spray,suspension 2 spray NASAL DAILY loratadine 10 MG tablet 10 mg PO QHS oxycodone 5 MG tablet 5 mg PO Q6H PRN PRN (Reason: Pain) enoxaparin 100 MG/ML syringe 100 mg subcut Q12@0600,1800 rosuvastatin [Crestor] 20 MG tablet 20 mg PO QHS metoprolol tartrate 25 MG tablet 12.5 mg PO BID metformin 500 MG tablet,ER lizzy.retention 24 hr 500 mg PO DAILY bimatoprost [Latisse] 1 DROP bottle 1 drp Each Eye QHS warfarin [Jantoven] 3 MG tablet 3 mg PO SUWEFR warfarin [Jantoven] 1 MG tablet 1.5 mg PO MOTUTHSA oxycodone 5 MG tablet 5 mg PO Q6H PRN PRN (Reason: Mod-Severe Pain (4-10/10)) Qty: 20 0RF Other Ambulatory Orders: ENTERIC PATHOGEN PANEL STOOL (Routine) Timeframe: 3 Days Facility: [facility] - Location: Laboratory Ordered By: Dr. Brice Lanza CDIFF (PCR) (Routine) Timeframe: 3 Days Facility: [facility] - Location: Laboratory Ordered By: Dr. Brice Lanza Primary Care Provider: Jordan Deluca Referrals: Jordan Deluca MD [Primary Care Provider] - 3-5 Days if not improving Disposition Disposition: Home, Self Care
[2023-02-22 16:44] LABS: Absolute Lymphocyte Count 0.81 X10^3/uL (0.83-4.51); Absolute Neutrophil Count 6.9 X10^3/uL (2.0-7.7); Basophil# 0.03 X10^3/uL; Basophil% 0.3 % (0-1); Eosinophil# 0.05 X10^3/uL; Eosinophils% 0.6 % (0-5); Hematocrit 50.1 % (40-54); Lymphocyte # 0.81 X10^3/ul (0.83-4.51); Lymphocyte % 9.4 % (19-41); Mean Corp Hgb Conc 33.9 g/dL (32-36); Mean Corpuscular Hgb 30.8 pg (27.0-32.0); Mean Corpuscular Volume 90.8 fL (80-94); Mean Platelet Vol. 9.4 fl (6.2-12.0); Monocyte# 0.76 X10^3/uL; Monocyte% 8.8 % (0-10); NRBC Flagged by Analyzer 0 % (0-5); Neutrophil # 6.94 X10^3/uL (2.7-7.7); Neutrophil % 80.4 % (47-70); Platelet Count 221 K/mm3 (150-450); RBC Distribution Width CV 13.4 % (11.6-14.6); RBC Distribution Width SD 44.8 fl (35.1-43.9); Red Blood Count 5.52 M/mm3 (4.6-6.2); White Blood Count 8.6 K/mm3 (4.4-11.0)
[2023-02-22] MEDS: 0.9% Normal Saline 1,000 ML 999 ML IV (16:54)
[2023-02-22] MEDS: Ondansetron 4 MG/2 ML Vial IV (16:54)
[2023-02-22 17:10] LABS: ALB/GLOB Ratio 1.1 RATIO (0.9-2.4); AST(SGOT) 33 U/L (15-37); Alanine Aminotransfer ALT/SGPT 39 U/L (16-61); Albumin, Serum 3.8 g/dL (3.2-5.0); Alkaline Phosphatase 41 U/L (45-117); Anion Gap 6 (5-15); BUN 17 mg/dL (7-18); BUN/Creat Ratio 12.7 RATIO (10-20); Calcium,Total 8.7 mg/dL (8.5-10.1); Chloride 102 mmol/L (98-107); Creatinine, Serum 1.34 mg/dL (0.70-1.30); EST Glomerular Filtration Rate 56 mL/min (>60); Est Glom Filt Rate - Afr Amer 67 mL/min (>60); Estimated Creatinine Clearance 49.83 ml/min; Globulin 3.6 g/dL (2.2-4.2); Glucose 115 mg/dL (74-106); Potassium 3.9 mmol/L (3.5-5.1); Protein, Total 7.4 g/dL (6.4-8.2); Sodium Level 134 mmol/L (136-145)
[2023-02-22 17:45] VITALS: BP 115/73; PULSE 69; RESP 16; O2SAT 96
[2023-02-22 18:44] VITALS: BP 109/75; PULSE 68; RESP 16; O2SAT 98
== END 2023-02-22 18:56 | disposition home or self-care (01) ==
PROVIDERS: Emergency Provider Emergency Medicine; PCP Family Medicine; Visit Provider Emergency Medicine
DX: K52.9 Noninfective gastroenteritis and colitis, unspecified (principal); Z87.891 Personal history of nicotine dependence; Z79.84 Long term (current) use of oral hypoglycemic drugs; Z79.01 Long term (current) use of anticoagulants; Z79.899 Other long term (current) drug therapy
CPT/HCPCS: 80053; 85025; 96361; 96374; 99283; J7030; A4216; J2405